=== PATIENT | female | born 1995 | race Caucasian/White ===

== ENCOUNTER 2016-12-12 09:59 | Inpatient (IN) | payer OTHER ==
[2016-12-12 10:33] VITALS: BMI 25.2
--- NOTE | 2016-12-12 10:40 | PDOC36 ---
Provider Note Subject: cc: Admission H&P HPI: 21 y.o. 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 Presents in active labor. REVIEW OF SYSTEMS GENERAL: No fever or headache EYES: No double or blurry vision. CARDIOVASCULAR: No chest pain. RESPIRATORY: No severe shortness of breath or cough. GASTROINTESTINAL: No nausea or vomiting or right upper quadrant pain. PSYCHIATRIC: No anxiety or depression. PROBLEMS Patient Active Problem List Diagnosis Date Noted 06/11/2016 History of gestational diabetes mellitus (GDM) 06/11/2016 OB HISTORY #: 1, Date: 01/23/14, Sex: Male, Weight: 3.402 kg (7 lb 8 oz), GA: 40w0d, Delivery: Vaginal, Spontaneous Delivery, Apgar1: None, Apgar5: None, Living: Yes , Comments: None #: 2, Current Dating: Dating Summary Working CHANDLER: 12/18/16 set by Alicia Cole on 06/07/16 based on Last Menstrual Period on 03/13/16 Based On CHANDLER GA Dif Comments GA Cyc Lut BC Entered By Date Last Menstrual Period on 03/13/16 (Approximate) 12/18/16 Working Alicia Cole 06/07/16 Ultrasound on 08/05/16 12/19/16 -1d anterior placenta without previa. normal male anatomy. 20w4d Marylin Del Real PA-C 08/12/16 PSH No past surgical history SOC HX reports that she has quit smoking. She has never used smokeless tobacco. She reports that she drinks alcohol. She reports that she uses illicit drugs ( Marijuana). ALL No Known Allergies MEDICATIONS No current outpatient prescriptions on file. PHYSICAL EXAMINATION VITAL SIGNS: T 98.2 P 112 BP 126/71 Estimated body mass index is 26.43 kg/(m^2) as calculated from the following: Height as of 12/06/16: 1.55 m (5' 1.02"). Weight as of 12/06/16: 63.504 kg (140 lb). Total weight gain is 10.433 kg (23 lb) FHT: 150's baseline, mod sissy, + accels [place]: q3-4 min SVE: 6/90/-1 GENERAL: No distress GASTROINTESTINAL: Gravid no fundal tenderness, vtx on leopolds LABS & STUDIES O+ Antibody- Rubella Immune Hep B- HIV- GC/Chlamydia- Trep- Hgb 11.4 GBS neg ASSESSMENT 21 y.o. year old CHANDLER 12/18/2016, by Last Menstrual Period at 39w1d who presents in active labor. PLAN Labor- active pattern. Expectant management FWB- category I GBS neg RH+ Pain- natural
[2016-12-12] MEDS ORDERED: SODIUM CHLORIDE 0.9% FLUSH 10 ML ONE (11:00)
[2016-12-12] MEDS ORDERED: OXYTOCIN 10 UNITS/ML VIAL ONE (11:00)
[2016-12-12] MEDS ORDERED: OXYTOCIN IN NS 500 ML IV ONE ×2 (11:00→21:57)
[2016-12-12] MEDS ORDERED: LIDOCAINE 1% (PRES FREE) 30 ML VIAL ONE (11:00)
[2016-12-12] MEDS ORDERED: MINERAL OIL 25 ML BOT ONE (11:00)
[2016-12-12] MEDS ORDERED: LIDOCAINE Viscous 2% 15 ML UDCUP ONE (11:00)
[2016-12-12] MEDS ORDERED: IV START KIT ONE (11:00)
[2016-12-12] MEDS ORDERED: PUMP TUBING ONE ×2 (11:00→21:58)
[2016-12-12] MEDS ORDERED: OXYTOCIN IN NS 334 ML IV PRN ×2 (11:22→22:04)
[2016-12-12 11:53] LABS: AMPHETAMINES/METHAMPHETAMINES NEGATIVE (NEGATIVE); COCAINE NEGATIVE (NEGATIVE); MARIJUANA NEGATIVE (NEGATIVE); METHADONE NEGATIVE (NEGATIVE); OPIATES NEGATIVE (NEGATIVE); TRICYCLIC ANTIDEPRESSANTS NEGATIVE (NEGATIVE)
[2016-12-12 12:29] LABS: HEMATOCRIT 34.1 % (37.0-47.0); HEMOGLOBIN 11.4 gm/l (12.0-16.0); MEAN CORPUSCULAR HEMOGLOBIN 30.1 pg (27.0-31.0); MEAN CORPUSCULAR HGB CONC 33.4 g/dl (33.0-37.0); RED CELL DISTRIBUTION WIDTH 13.4 % (11.5-14.5)
[2016-12-12] MEDS ORDERED: LACTATED RINGERS 1,000 ML IV SCH (14:49)
--- NOTE | 2016-12-12 16:04 | PDOC36 ---
Provider Note Subject: S: just got out of tub. Doing well. Feeling more pressure. O: T 99.0 BP 116/68 P 99 CE: 6/90/-2 , transverse position FHT: 160's baseline, + accels, no decels, intermittent auscultation per RN, now on monitor Ctx; q2-3 min ASSESSMENT 21 y.o. year old CHANDLER 12/18/2016, by Last Menstrual Period at 39w1d who presents in active labor. PLAN Labor- active pattern. AROM performed with minimal change. Expectant management and anticipate FWB- category I GBS neg RH+ Pain- natural
[2016-12-12] MEDS ORDERED: LIDOCAINE 1% (PRES FREE) 30 ML VIAL SUB-Q ONE (17:40)
[2016-12-12] MEDS ORDERED: BENZOCAINE/MENTHOL 60 APPLIC/BOT TP PRN (17:56)
[2016-12-12] MEDS ORDERED: LANOLIN 50 APPLIC/7G TUBE TP PRN (17:56)
[2016-12-12] MEDS ORDERED: HYDROCODONE/ACETAMINOPHEN 5/325MG TABLET PO PRN (17:56)
[2016-12-12] MEDS ORDERED: DOCUSATE SODIUM 100 MG CAPSULE PO PRN (17:56)
[2016-12-12] MEDS ORDERED: MAGNESIUM HYDROXIDE 30 ML UDCUP PO PRN (17:56)
--- NOTE | 2016-12-12 17:57 | PCMDEL ---
Delivery Note - Labor 1st stage (hr/min):: 10 hours 2nd stage (hr/min):: 19 min 3rd stage (hr/min):: 4 min Total (hr/min):: 11 hours Pushed (hr/min):: 19 min - Delivery Delivery (Date): 12/12/16 Delivery (Time): 17:33 Gender: Male Presentation: Cephalic Position: OA Umbilical Cord: 3 Vessel Delayed Cord Clamping:: 2-3 min 1 Minute Total: 9 5 Minute Total: 9 Placenta:: intact EBL:: 300 Perineum:: First deg midline perineal lac repaired in running fashion with 3-0 vicryl. Comments:: Presented with active contraction pattern. AROM performed with rapid dilation. Pushed effectively to deliver via . Delayed cord clamping x2 min. Vigorous . monitoring with intermittent auscultation category 1 thorughout labor and delivery course.
[2016-12-12] MEDS: IBUPROFEN 800 MG TABLET PO PRN (18:15)
[2016-12-13] MEDS: IBUPROFEN 800 MG TABLET PO PRN (01:16)
[2016-12-13 06:44] LABS: HEMATOCRIT 27.2 % (37.0-47.0); HEMOGLOBIN 9.3 gm/l (12.0-16.0)
--- NOTE | 2016-12-13 08:43 | PDOC39B ---
Hospital Course: ADMIT DATE: 12/12/16 DISCHARGE DATE: 12/13/16 ADMISSION DIAGNOSES: Labor PROCEDURES: HISTORY OF PRESENT ILLNESS: 21 year old G2 T1 L0 at 39 weeks 1 days presenting with labor. HOSPITAL COURSE: The patient is doing well. No complaints. Breast feeding well. By day of discharge the patient is ambulating, eating, voiding, and passing flatus without difficulty. Pain is controlled and lochia is appropriate. She is [] - Physical Exam Vital Signs: Temp Pulse Resp BP Pulse Ox 97.7 F 96 14 109/57 12/13/16 07:38 12/13/16 07:38 12/13/16 07:38 12/13/16 07:38 General: Afebrile Psych/Mental Status: Mood/Affect Appropriate Neurological: Alert HEENT: Atraumatic Lungs: Clear to Auscultation Bilaterally Cardiovascular: Regular Rate and Rhythm Breast: Soft Fundus: Firm Abdomen: Normal Bowel Sounds Genitourinary: Normal Female Genitalia Lochia: Light Rectal Exam: Deferred Extremities: Full ROM, Other (nt, no edema) Skin: Normal Color - Discharge Diagnosis (1) (normal spontaneous vaginal delivery) Status: AcuteAssessment/Plan: doing well. no concerns, breast feeding well. DC home after dinner today. - Discharge Plan Condition: Good Disposition: Home Prescriptions: Docusate Sodium [COLACE 100 MG CAPSULE (SHF)] 100 mg PO DAILY PRN #30 cap PRN Reason: Constipation Ibuprofen [Motrin] 800 mg PO Q8H PRN #30 tablet PRN Reason: Pain FERROUS SULFATE (65 Fe) [IRON FERROUS SULFATE 325 MG TABLET (SHF)] 325 mg PO DAILY #30 tab Follow-Up: Tamara Del Real PA [Primary Care Provider] - In 6 weeks
[2016-12-13 14:06] VITALS: BP 103/55
== END 2016-12-13 20:33 | disposition home or self-care (01) | DRG 775 ==
LOC: FBCOUT 09:59 → FBC 10:03 → FBCOUT 10:29
PROVIDERS: ADMIT Family Medicine; ATTEND Family Medicine
PROC: 10E0XZZ Delivery of Products of Conception, External Approach (ICD-10-PCS; principal; 2016-12-12)
PROC: 0HQ9XZZ Repair Perineum Skin, External Approach (ICD-10-PCS; 2016-12-12)
PROC: 10907ZC Drainage of Amniotic Fluid, Therapeutic from Products of Conception, Via Natural or Artificial Opening (ICD-10-PCS; 2016-12-12)
DX: O24.420 Gestational diabetes mellitus in childbirth, diet controlled (principal); O99.324 Drug use complicating childbirth; O70.0 First degree perineal laceration during delivery; Z3A.39 39 weeks gestation of pregnancy; O64.8XX0 Obstructed labor due to other malposition and malpresentation, not applicable or unspecified; Z37.0 Single live birth; F12.90 Cannabis use, unspecified, uncomplicated; O99.334 Smoking (tobacco) complicating childbirth